=== PATIENT | female | born 1995 ===

== ENCOUNTER 2020-08-17 20:03 | Outpatient (CLI) | payer OTHER ==
[2020-08-17] MEDS ORDERED: PRENATAL CAPLE1 EAC1 PO (20:22)
[2020-08-17] MEDS ORDERED: TYLENOL325 MG (20:23)
[2020-08-17] MEDS ORDERED: MACROBID 100 M100 MG PO (20:23)
== END 2020-08-18 05:38 | disposition left against medical advice (07) ==
LOC: OBS/DEL 20:03
PROVIDERS: ATTEND Obstetrics & Gynecology
DX: O26.892 Other specified pregnancy related conditions, second trimester (principal); N13.1 Hydronephrosis with ureteral stricture, not elsewhere classified; N20.0 Calculus of kidney; Z3A.21 21 weeks gestation of pregnancy